=== PATIENT | male | born 1965 | race Caucasian/White ===

== ENCOUNTER 2021-07-19 22:52 | Emergency (ER) | payer OTHER ==
[2021-07-19] MEDS ORDERED: Ketorolac Tromethamine 60 MG/2 ML VIAL ONE (23:09)
== END 2021-07-19 23:55 ==
LOC: NAV ERS 22:52
DX: S29.011A Strain of muscle and tendon of front wall of thorax, initial encounter (principal); I25.2 Old myocardial infarction; E11.9 Type 2 diabetes mellitus without complications; E03.9 Hypothyroidism, unspecified; I10 Essential (primary) hypertension; Z87.891 Personal history of nicotine dependence; Z79.82 Long term (current) use of aspirin; Z79.02 Long term (current) use of antithrombotics/antiplatelets; Z79.899 Other long term (current) drug therapy; X58.XXXA Exposure to other specified factors, initial encounter
CPT/HCPCS: 96372; J1885